=== PATIENT | male | born 1935 | race Caucasian/White ===

== ENCOUNTER → 2017-11-02 | Outpatient (CLI) | payer MEDICARE ==
[~2017-11-02] MED LIST: ALBUTEROL0.83 MG/ML IH; CELEXA 20MG20 MG/TAB PO; COLACE 100100 MG/CAP PO; CRESTOR20 MG PO; DILANTIN 100MG100 MG PO; KEPPRA 500MG500 MG PO; LEVEMIR100 U/ML SQ; MIRALAX PA17 GM/Dose PO; NOVOLIN 70/30 710 ML SQ; NOVOLOGMIX70/30 SQ; PROAIR HFA0.09 MG/AC IH; PROTONIX40 MG/Pack PO; RT ADVAIR 228 DISKUS IH; RT SPIRIVA18 MCG IH; SEROQUEL 2525 MG/TAB PO; TOPROL XL 25MG25 MG PO; TRIAMCINOLONE A15 G3 TP; VITAMIND3 5000
[2017-11-02 16:17] LABS: BASO % 0.6 % (0.0-2.0); EOS # 0.3 (0.0-0.7); EOS % 6.1 % (0-4.0); GRAN # 2.8 (1.4-6.5); GRAN % 59.1 % (42.2-75.2); LYMPH % 21.7 % (20.0-51.0); MEAN CELL VOLUME 99 fl (80.0-100.0); MEAN CORPUSCULAR HGB CONC 34 g/dl (33.0-37.0); MEAN PLATELET VOLUME 10.7 fl (7.4-10.4); MONO # 0.6 (0.1-0.6); MONO % 11.9 % (1.7-9.3); PLATELET COUNT 111 K/mm3 (130-400); RED BLOOD COUNT 3.25 M/mm3 (4.20-5.60); REDCELL DISTRIBUTION WIDTH-CV 12.4 % (11.5-14.5)
[2017-11-02 16:18] LABS: HEMATOCRIT 32.3 % (42.0-52.0); MEAN CORPUSCULAR HEMOGLOBIN 34 pg (27.0-31.0)
[2017-11-02 16:25] LABS: INR 1.4 (0.8-3.0)
[2017-11-02 16:28] LABS: ALBUMIN 3.2 gm/dL (3.5-5.0); BILIRUBIN,TOTAL 0.2 mg/dL (0.0-1.0); CALCIUM 8.4 mg/dL (8.4-10.2); CREATININE, serum 0.97 mg/dL (0.66-1.25); POTASSIUM 3.8 mmol/L (3.4-5.0); TOTAL PROTEIN 5.9 gm/dL (6.4-8.2)
== END ==
LOC: ZCOL.LAB 15:50
PROVIDERS: Internal Medicine
DX: E11.9 Type 2 diabetes mellitus without complications (principal); I10 Essential (primary) hypertension

== ENCOUNTER 2017-12-26 10:54 | Emergency (ER) | payer MEDICARE ==
[~2017-12-26] VITALS: Ht 182.9 cm; Wt 122.7 kg
[2017-12-26 11:27] VITALS: BP 141/64; PULSE 62; TEMP 98.9
[2017-12-26] MEDS ORDERED: TYLENOL 325MG325 MG PO (12:33)
[2017-12-26] MEDS ORDERED: COLACE 100100 MG/CAP PO (12:35)
[2017-12-26] MEDS ORDERED: LOPRESSOR 225 MG/TAB PO (12:36)
== END 2017-12-26 12:51 | disposition home or self-care (01) ==
LOC: COL.ER 10:54
DX: S40.012A Contusion of left shoulder, initial encounter (principal); J44.9 Chronic obstructive pulmonary disease, unspecified; E11.9 Type 2 diabetes mellitus without complications; I10 Essential (primary) hypertension; E78.00 Pure hypercholesterolemia, unspecified; F03.90 Unspecified dementia, unspecified severity, without behavioral disturbance, psychotic disturbance, mood disturbance, and anxiety; G43.909 Migraine, unspecified, not intractable, without status migrainosus; Z79.51 Long term (current) use of inhaled steroids; Z79.4 Long term (current) use of insulin; W06.XXXA Fall from bed, initial encounter; Y92.129 Unspecified place in nursing home as the place of occurrence of the external cause

== ENCOUNTER 2018-01-11 17:52 | Emergency (ER) | payer MEDICARE ==
[~2018-01-11] VITALS: Ht 182.9 cm; Wt 118.2 kg
[~2018-01-11 17:52] MED LIST changes: +LOPRESSOR 225 MG/TAB PO; +TYLENOL 325MG325 MG PO
[2018-01-11 17:59] VITALS: BP 145/68; TEMP 97.9
[2018-01-11 19:41] VITALS: PULSE 72
== END 2018-01-11 19:10 ==
LOC: COL.ER 17:52
DX: S41.112A Laceration without foreign body of left upper arm, initial encounter (principal); S41.111A Laceration without foreign body of right upper arm, initial encounter; S00.83XA Contusion of other part of head, initial encounter; F03.90 Unspecified dementia, unspecified severity, without behavioral disturbance, psychotic disturbance, mood disturbance, and anxiety; E11.9 Type 2 diabetes mellitus without complications; G40.909 Epilepsy, unspecified, not intractable, without status epilepticus; E78.5 Hyperlipidemia, unspecified; Z79.4 Long term (current) use of insulin; Z87.891 Personal history of nicotine dependence; W01.10XA Fall on same level from slipping, tripping and stumbling with subsequent striking against unspecified object, initial encounter

== ENCOUNTER 2018-06-17 01:25 | Emergency (ER) | payer MEDICARE ==
[~2018-06-17] VITALS: Ht 172.7 cm; Wt 113.6 kg
[2018-06-17 01:25] VITALS: TEMP 100.5
[2018-06-17 02:04] LABS: HEMOGLOBIN 11.7 g/dl (13.5-18.0); MEAN CELL VOLUME 100 fl (80.0-100.0); MEAN CORPUSCULAR HEMOGLOBIN 34 pg (27.0-31.0); MEAN CORPUSCULAR HGB CONC 34 g/dl (33.0-37.0); PLATELET COUNT 109 K/mm3 (130-400); RED BLOOD COUNT 3.48 M/mm3 (4.20-5.60); REDCELL DISTRIBUTION WIDTH-CV 13.2 % (11.5-14.5)
[2018-06-17 02:05] LABS: HEMATOCRIT 34.7 % (42.0-52.0)
[2018-06-17 02:08] LABS: INR 1.3 (0.8-3.0); PROTHROMBIN TIME 14.7 SECONDS (9.7-12.8)
[2018-06-17 02:16] LABS: ALANINE AMINOTRANSFERASE 28 U/L (21-72); ALBUMIN 3.5 gm/dL (3.5-5.0); ALKALINE PHOSPHATASE 132 U/L (50-136); ANION GAP 3 mmol/L (7-16); AST,SGOT 28 U/L (15-37); BILIRUBIN,TOTAL 0.9 mg/dL (0.0-1.0); BLOOD UREA NITROGEN 16 mg/dL (9-20); CALCIUM 8.3 mg/dL (8.4-10.2); CARBON DIOXIDE 31 mmol/L (22-30); CHLORIDE 104 mmol/L (98-107); CREATININE, serum 1.07 mg/dL (0.66-1.25); GLUCOSE 147 mg/dL (74-106); POTASSIUM 4.3 mmol/L (3.4-5.0); SODIUM 137 mmol/L (137-145); TOTAL PROTEIN 6.8 gm/dL (6.4-8.2)
[2018-06-17 02:31] LABS: TROPONIN-I < 0.012 ng/mL (0.000-0.034)
[2018-06-17 03:16] LABS: COLLECTION METHOD CLEAN CATCH
[2018-06-17 03:22] LABS: MUCOUS Present /lpf; PH 5 (5-8); SQUAMOUS EPITHELIAL None Seen /hpf; URINE APPEARANCE Clear; URINE BACTERIA Rare /hpf; URINE BILIRUBIN Negative (NEGATIVE); URINE BLOOD Negative (NEGATIVE); URINE COLOR Yellow; URINE GLUCOSE Negative (NEGATIVE); URINE KETONE Negative (NEGATIVE); URINE LEUKOCYTE ESTERASE Negative (NEGATIVE); URINE NITRATE Negative (NEGATIVE); URINE PROTEIN(semi-quant) 1+ (NEGATIVE); URINE RBC 0-2 /hpf; URINE UROBILINOGEN Negative (NEGATIVE)
[2018-06-17 03:27] LABS: BAND 5 % (0-10); BASOPHIL 1 % (0-2); LYMPHOCYTE 5 % (20.0-51.0); METAMYELOCYTE 1 % (0-0); NEUTROPHILS 79 % (42.0-75.2)
[2018-06-17 03:28] LABS: PLATELET ESTIMATE DECREASED (NORMAL)
[2018-06-17 06:03] VITALS: BP 132/66; PULSE 82
== END 2018-06-17 06:06 | disposition home or self-care (01) ==
LOC: COL.ER 01:25
PROVIDERS: Emergency Medicine
DX: R41.82 Altered mental status, unspecified (principal); I10 Essential (primary) hypertension; J44.9 Chronic obstructive pulmonary disease, unspecified; F03.90 Unspecified dementia, unspecified severity, without behavioral disturbance, psychotic disturbance, mood disturbance, and anxiety; E11.22 Type 2 diabetes mellitus with diabetic chronic kidney disease; I11.0 Hypertensive heart disease with heart failure; I50.9 Heart failure, unspecified; I25.10 Atherosclerotic heart disease of native coronary artery without angina pectoris; Z79.4 Long term (current) use of insulin; Z79.51 Long term (current) use of inhaled steroids; Z91.81 History of falling; W19.XXXA Unspecified fall, initial encounter; Y92.129 Unspecified place in nursing home as the place of occurrence of the external cause

== ENCOUNTER → 2018-08-12 | Outpatient (CLI) | payer MEDICARE | LOC: ZCOL.LAB 08:46 | DX: N39.0 Urinary tract infection, site not specified (principal) ==